=== PATIENT | male | born 1950 | race Caucasian/White ===

== ENCOUNTER → 2017-06-22 09:28 | Outpatient (CLI) | payer MEDICARE, OTHER, SELFPAY ==
[2017-06-22 11:15] LABS: AST(SGOT) 15 U/L (15-37); Alanine Aminotransfer ALT/SGPT 25 U/L (16-61); Albumin, Serum 3.9 g/dL (3.2-5.0); Alkaline Phosphatase 70 U/L (45-117); Cholesterol 128 mg/dL (200); Globulin 3.5 g/dL (2.2-4.2); High Density Lipoprotein 47 mg/dL; Protein, Total 7.4 g/dL (6.4-8.2); Triglycerides 124 mg/dL; Very Low Density Lipoprotein 25 mg/dL (5-40)
== END ==
PROVIDERS: Family Provider Family Medicine; PCP Family Medicine; Visit Provider Internal Medicine Cardiovascular Disease
DX: E78.5 Hyperlipidemia, unspecified (principal); Z79.899 Other long term (current) drug therapy
CPT/HCPCS: 80061; 80076

== ENCOUNTER → 2017-09-11 10:57 | Outpatient (CLI) | payer MEDICARE, OTHER, SELFPAY ==
[2017-09-11 13:24] LABS: Hemoglobin A1c 8.1 % (4.2-6.3)
== END ==
PROVIDERS: Family Provider Family Medicine; PCP Family Medicine; Visit Provider Family Medicine
DX: E11.51 Type 2 diabetes mellitus with diabetic peripheral angiopathy without gangrene (principal)
CPT/HCPCS: 36415; 83036

== ENCOUNTER → 2017-12-03 10:29 | Outpatient (CLI) | payer MEDICARE, OTHER, SELFPAY ==
[2017-12-03 11:42] LABS: Hemoglobin A1c 7.8 % (4.2-6.3)
[2017-12-03 11:53] LABS: ALB/GLOB Ratio 1.1 RATIO (0.9-2.4); AST(SGOT) 17 U/L (15-37); Alanine Aminotransfer ALT/SGPT 31 U/L (16-61); Albumin, Serum 3.8 g/dL (3.2-5.0); Alkaline Phosphatase 65 U/L (45-117); Anion Gap 9 (5-15); BUN 20 mg/dL (7-18); Chloride 106 mmol/L (98-107); Cholesterol 142 mg/dL (200); EST Glomerular Filtration Rate 79 mL/min (>60); Est Glom Filt Rate - Afr Amer 95 mL/min (>60); Globulin 3.5 g/dL (2.2-4.2); Glucose 128 mg/dL (74-106); High Density Lipoprotein 48 mg/dL; Potassium 4.2 mmol/L (3.5-5.1); Protein, Total 7.3 g/dL (6.4-8.2); Sodium Level 142 mmol/L (136-145); Triglycerides 137 mg/dL; Very Low Density Lipoprotein 27 mg/dL (5-40)
== END ==
PROVIDERS: Family Provider Family Medicine; PCP Family Medicine; Visit Provider Family Medicine
DX: E78.5 Hyperlipidemia, unspecified (principal); E11.51 Type 2 diabetes mellitus with diabetic peripheral angiopathy without gangrene
CPT/HCPCS: 36415; 80053; 80061; 83036

== ENCOUNTER → 2018-02-28 10:50 | Outpatient (CLI) | payer MEDICARE, OTHER, SELFPAY ==
[2018-02-28 12:31] LABS: Hemoglobin A1c 7.6 % (4.2-6.3)
== END ==
PROVIDERS: Family Provider Family Medicine; PCP Family Medicine; Referring Provider Family Medicine; Visit Provider Family Medicine
DX: E11.51 Type 2 diabetes mellitus with diabetic peripheral angiopathy without gangrene (principal)
CPT/HCPCS: 36415; 83036

== ENCOUNTER → 2018-05-29 06:50 | Outpatient (CLI) | payer MEDICARE, OTHER, SELFPAY ==
[2018-05-02 10:18] VITALS: BMI 28.5
--- NOTE | 2018-05-29 06:52 | ECHOD_ITS ---
Reason For Study: CAD Procedure This was a 2D Doppler, Color Flow transthoracic echocardiogram. Exam performed in department. Left Ventricle Normal LV size. Left ventricular systolic function is normal. The estimated ejection fraction is 55 %. Stage 1 diastolic dysfunction. No regional wall motion abnormalities noted. Right Ventricle Normal RV size. Normal systolic function. Atria Normal left atrium. Normal right atrium. Hypermobile atrial septum. Bubble contrast study negative for right to left interatrial shunt. Mitral Valve Normal mitral valve. Tricuspid Valve Normal tricuspid valve. Mild tricuspid valve insufficiency. Pulmonary artery systolic pressure is 26 mmHg. Aortic Valve Normal aortic valve. Trisinus/trileaflet aortic valve. Pulmonic Valve Normal pulmonic valve. Great Vessels Normal aortic root. The pulmonary artery is normal size. Normal inferior vena cava. Pericardium/Pleural No pericardial effusion. Medication Performed a rapid injection of agitated mix of 9 cc saline and 1cc air to assess for atrial septal defect. MMode/2D Measurements & Calculations LVIDd: 4.2 cm IVSd: 0.96 cm Ao root diam: 3.0 cm LVIDs: 2.5 cm LVPWd: 0.93 cm RVDd: 3.7 cm FS: 40.9 % LAV(MOD-bp): 43.5 ml LA A4 area: 16.0 cm2 LA dimension(2D): 3.5 cm LAV(MOD-bp) Indexed: 21.1 ml/m2 LAV(MOD-sp2): 49.9 ml LAV(MOD-sp4): 36.8 ml RA A4 area: 12.0 cm2 Doppler Measurements & Calculations MV E max justin: 49.5 cm/sec Lat Peak E' Justin: 12.7 cm/sec Med Peak E' Jutsin: 7.1 cm/sec MV A max justin: 57.1 cm/sec E/E' lat: 3.9 E/E' med: 7.0 MV E/A: 0.87 Ao V2 max: 118.5 cm/sec LV V1 max: 94.3 cm/sec PA V2 max: 141.4 cm/sec Ao max P.6 mmHg LV V1 max P.6 mmHg TR max justin: 237.6 cm/sec TR max P.8 mmHg Interpretation Summary Hypermobile atrial septum. Normal LV size. Left ventricular systolic function is normal. The estimated ejection fraction is 55 %. Stage 1 diastolic dysfunction. Bubble contrast study negative for right to left interatrial shunt. Mild tricuspid valve insufficiency. Ordering Physician: Ebenezer Balderas Referring Physician: Jamarcus Levi Performed By: Christie Nevarez RDCS
--- NOTE | 2018-05-29 13:47 | STRESSREP ---
Stress Test Report Exercise myocardial perfusion stress test. 67-year-old man with a history of coronary artery disease. Medications: Aspirin, lisinopril, metoprolol, atorvastatin, metformin. Resting EKG demonstrates sinus rhythm with a rate of 62 bpm normal intervals are noted resting blood pressure 118/78 mmHg. The patient exercised according to regular Christian protocol for a total duration of 7 minutes and 30 seconds the maximum heart rate attained was 150 bpm which was 99% of maximum predicted heart rate the maximum workload was 9.3 metabolic equivalents. At rest there were no ST or T wave changes noted suggest ischemia peak exercise upsloping ST changes were noted with normally the criteria for ischemia. The resting blood pressure 118/78 with a peak blood pressure 158/76. No clinical angina was noted. Myocardial perfusion protocol. 14.7 mCi of technetium 99m sestamibi was injected at rest. Patient exercised according to regular Christian protocol. At peak exercise 44.8 mCi of technetium 99m sestamibi was injected stress images were obtained stress and rest images were reconstructed and compared in the short axis vertical and horizontal long axis. Gated images were also obtained Perfusion SPECT analysis: Review of the stress images demonstrate normal uptake of tracer noted in all areas of myocardium. The resting images similarly demonstrate normal uptake of tracer noted in all areas of myocardium. No areas of reversibility are noted suggest ischemia no previous infarct is noted. Next Gated SPECT analysis: The gated ejection fraction is noted to be 73%. Conclusion: Normal exercise myocardial perfusion stress test at a high workload. Preserved ejection fraction.
== END ==
PROVIDERS: Family Provider Family Medicine; PCP Family Medicine; Referring Provider Internal Medicine Cardiovascular Disease; Visit Provider Internal Medicine Cardiovascular Disease
DX: I25.10 Atherosclerotic heart disease of native coronary artery without angina pectoris (principal); Z95.1 Presence of aortocoronary bypass graft
CPT/HCPCS: 78452; 93017; 93306; A9500; A4216

== ENCOUNTER → 2018-08-21 11:46 | Outpatient (CLI) | payer MEDICARE, OTHER, SELFPAY ==
[2018-08-21 11:07] VITALS: BMI 28.5
[2018-08-21 13:33] LABS: Hemoglobin A1c 7.6 % (4.2-6.3)
== END ==
PROVIDERS: Family Provider Family Medicine; PCP Family Medicine; Visit Provider Family Medicine
DX: E11.51 Type 2 diabetes mellitus with diabetic peripheral angiopathy without gangrene (principal)
CPT/HCPCS: 36415; 83036

== ENCOUNTER → 2018-11-19 11:49 | Outpatient (CLI) | payer MEDICARE, OTHER, SELFPAY ==
[2018-11-19 11:25] VITALS: BMI 28.5
[2018-11-19 12:39] LABS: ALB/GLOB Ratio 1.1 RATIO (0.9-2.4); AST(SGOT) 12 U/L (15-37); Alanine Aminotransfer ALT/SGPT 20 U/L (16-61); Albumin, Serum 3.8 g/dL (3.2-5.0); Alkaline Phosphatase 71 U/L (45-117); Anion Gap 4 (5-15); BUN 18 mg/dL (7-18); BUN/Creat Ratio 20.7 RATIO (10-20); Calcium,Total 8.9 mg/dL (8.5-10.1); Chloride 107 mmol/L (98-107); Cholesterol 127 mg/dL (200); Creatinine, Serum 0.87 mg/dL (0.70-1.30); EST Glomerular Filtration Rate 92 mL/min (>60); Est Glom Filt Rate - Afr Amer 111 mL/min (>60); Globulin 3.4 g/dL (2.2-4.2); Glucose 130 mg/dL (74-106); High Density Lipoprotein 51 mg/dL; Potassium 4.1 mmol/L (3.5-5.1); Protein, Total 7.2 g/dL (6.4-8.2); Sodium Level 139 mmol/L (136-145); Triglycerides 93 mg/dL; Very Low Density Lipoprotein 19 mg/dL (5-40)
== END ==
PROVIDERS: Family Provider Family Medicine; PCP Family Medicine; Visit Provider Family Medicine
DX: I10 Essential (primary) hypertension (principal); E78.00 Pure hypercholesterolemia, unspecified
CPT/HCPCS: 36415; 80053; 80061

== ENCOUNTER → 2020-01-06 10:07 | Outpatient (CLI) | payer MEDICARE, OTHER, SELFPAY ==
[2020-01-06 09:36] VITALS: BMI 28.5
[2020-01-06 12:50] LABS: ALB/GLOB Ratio 1.1 RATIO (0.9-2.4); AST(SGOT) 20 U/L (15-37); Alanine Aminotransfer ALT/SGPT 32 U/L (16-61); Alkaline Phosphatase 72 U/L (45-117); Anion Gap 4 (5-15); BUN 20 mg/dL (7-18); BUN/Creat Ratio 20.9 RATIO (10-20); Chloride 105 mmol/L (98-107); Cholesterol 116 mg/dL (200); Creatinine, Serum 0.96 mg/dL (0.70-1.30); EST Glomerular Filtration Rate 83 mL/min (>60); Est Glom Filt Rate - Afr Amer 100 mL/min (>60); Globulin 3.5 g/dL (2.2-4.2); Glucose 216 mg/dL (74-106); High Density Lipoprotein 42 mg/dL; Potassium 4.1 mmol/L (3.5-5.1); Protein, Total 7.5 g/dL (6.4-8.2); Sodium Level 137 mmol/L (136-145); Triglycerides 179 mg/dL; Very Low Density Lipoprotein 36 mg/dL (5-40)
== END ==
PROVIDERS: PCP Family Medicine; Referring Provider Family Medicine; Visit Provider Family Medicine
DX: E11.9 Type 2 diabetes mellitus without complications (principal)
CPT/HCPCS: 36415; 80053; 80061

== ENCOUNTER → 2021-04-26 10:40 | Outpatient (CLI) | payer MEDICARE, OTHER, SELFPAY ==
[2021-04-26 12:40] LABS: AST(SGOT) 9 U/L (15-37); Alanine Aminotransfer ALT/SGPT 22 U/L (16-61); Albumin, Serum 3.6 g/dL (3.2-5.0); Alkaline Phosphatase 71 U/L (45-117); Cholesterol 105 mg/dL (200); Globulin 3.5 g/dL (2.2-4.2); High Density Lipoprotein 47 mg/dL; Protein, Total 7.1 g/dL (6.4-8.2); Triglycerides 68 mg/dL; Very Low Density Lipoprotein 14 mg/dL (5-40)
== END ==
PROVIDERS: PCP Family Medicine; Visit Provider Internal Medicine Cardiovascular Disease
DX: E78.00 Pure hypercholesterolemia, unspecified (principal)
CPT/HCPCS: 36415; 80061; 80076

== ENCOUNTER → 2021-12-09 | Outpatient (CLI) | payer MEDICARE, OTHER, SELFPAY ==
--- NOTE | 2021-12-09 15:25 | RAD_ITS ---
EXAM: XR LEFT SHOULDER COMPLETE, 2 OR MORE VIEWS CLINICAL INDICATION: left shoulder pain and limited ROM TECHNIQUE: Two or more views of the left shoulder. This report was created using [employer] report generation technology. COMPARISON: None. FINDINGS: BONES/JOINTS: The bones are demineralized. No left shoulder fracture significant glenohumeral or AC joint narrowing or widening. Small inferior projecting osteophyte from the tip of the acromion at the AC joint seen on one view. No evidence of joint effusion or soft tissue swelling. No sclerotic or destructive changes observed. SOFT TISSUES: See above. OTHER FINDINGS: 4 views. RAD/Shoulder min 2 Views IMPRESSION: Minimal degenerative changes. No fracture. Demineralization. Electronically Signed: Hina Galicia MD at 3:43 EDT ,
--- NOTE | 2021-12-09 15:30 | RAD_ITS ---
EXAM: XR CERVICAL SPINE, 4 OR 5 VIEWS CLINICAL INDICATION: neck pain left side TECHNIQUE: Frontal, lateral and bilateral oblique views of the cervical spine. This report was created using [employer] report generation technology. COMPARISON: None. FINDINGS: VERTEBRAE: 5 total images including AP, lateral and oblique, and open-mouth odontoid. OTHER BONES/JOINTS: Median sternotomy wires are partially included. DISC SPACES: Moderate disc space narrowing at C4-5 and marked narrowing at C5-6. Mild spondylosis at C4-C6. Straightening of the usual lordotic curvature. SOFT TISSUES: Unremarkable. No prevertebral soft tissue widening. VASCULATURE: Moderate cervical carotid calcifications. LUNG APICES: Unremarkable medial lung apices. RAD/Cerv Spine 4 or 5 Views IMPRESSION: Moderate degenerative changes. No acute abnormality. Electronically Signed: Hina Galicia MD at 3:20 EDT ,
== END | disposition home or self-care (01) ==
LOC: RAD 15:24
PROVIDERS: PCP Family Medicine; Referring Provider Physician Assistant; Visit Provider Physician Assistant
DX: M25.519 Pain in unspecified shoulder (principal); M25.619 Stiffness of unspecified shoulder, not elsewhere classified; M54.2 Cervicalgia
CPT/HCPCS: 72050; 73030

== ENCOUNTER → 2022-04-19 | Outpatient (CLI) | payer MEDICARE, OTHER, SELFPAY | END | disposition home or self-care (01) | LOC: LABSPEC 15:36 | PROVIDERS: PCP Family Medicine; Referring Provider Physician Assistant; Visit Provider Physician Assistant | DX: U07.1 COVID-19 (principal); R05.9 Cough, unspecified | CPT/HCPCS: 87635; U0003; U0005 ==

== ENCOUNTER → 2022-05-11 | Outpatient (CLI) | payer MEDICARE, OTHER, SELFPAY ==
[2022-05-11 12:38] LABS: ALB/GLOB Ratio 1.3 RATIO (0.9-2.4); AST(SGOT) 12 U/L (15-37); Alanine Aminotransfer ALT/SGPT 23 U/L (16-61); Albumin, Serum 3.5 g/dL (3.2-5.0); Alkaline Phosphatase 61 U/L (45-117); Anion Gap 4 (5-15); BUN 13 mg/dL (7-18); BUN/Creat Ratio 14.6 RATIO (10-20); Chloride 108 mmol/L (98-107); Cholesterol 120 mg/dL (200); Creatinine, Serum 0.89 mg/dL (0.70-1.30); EST Glomerular Filtration Rate 89 mL/min (>60); Est Glom Filt Rate - Afr Amer 107 mL/min (>60); Globulin 2.7 g/dL (2.2-4.2); Glucose 148 mg/dL (74-106); High Density Lipoprotein 45 mg/dL; Potassium 4.1 mmol/L (3.5-5.1); Protein, Total 6.2 g/dL (6.4-8.2); Sodium Level 141 mmol/L (136-145); Triglycerides 112 mg/dL; Very Low Density Lipoprotein 22 mg/dL (5-40)
[2022-05-11 12:44] LABS: Microalbumin,Random Urine < 5.0 mg/L (NO RANGE EST.)
== END | disposition home or self-care (01) ==
LOC: BIMLAB 10:09
PROVIDERS: PCP Family Medicine; Referring Provider Family Medicine; Visit Provider Family Medicine
DX: E11.9 Type 2 diabetes mellitus without complications (principal); E78.00 Pure hypercholesterolemia, unspecified; I10 Essential (primary) hypertension
CPT/HCPCS: 36415; 80053; 80061; 82043; 82570

== ENCOUNTER → 2023-03-07 | Outpatient (CLI) | payer MEDICARE, OTHER, SELFPAY ==
--- NOTE | 2023-03-07 10:18 | RAD_ITS ---
STUDY: X-RAY - RIGHT KNEE REASON FOR EXAM: Male, 72 years old. Knee pain. TECHNIQUE: 4 views of the right knee. COMPARISON: None. FINDINGS: Normal visualized distal femur. Normal visualized proximal tibia and fibula. Normal proximal tibiofibular articulation. There is no demonstrated fracture. Normal medial femorotibial compartment. Normal lateral femorotibial compartment. Normal patellofemoral articulation. There is a moderate to large volume joint effusion. There are atherosclerotic calcifications. RAD/Knee 4 or More Views IMPRESSION: Moderate to large joint effusion. No demonstrated fracture. Electronically Signed: Pan Kyle MD at 11:23 EDT ,
== END | disposition home or self-care (01) ==
LOC: RAD 10:06
PROVIDERS: PCP Family Medicine; Referring Provider Family Medicine; Visit Provider Family Medicine
DX: M70.41 Prepatellar bursitis, right knee (principal)
CPT/HCPCS: 73564

== ENCOUNTER → 2023-06-07 | Outpatient (CLI) | payer MEDICARE, OTHER, SELFPAY ==
--- NOTE | 2023-06-07 06:38 | ECHOD_ITS ---
Version 2 Reason For Study: CAD/ASHD Procedure This was a 2D Doppler, Color Flow transthoracic echocardiogram. Exam performed in department. Left Ventricle Normal LV size. Left ventricular systolic function is normal. The estimated ejection fraction is 60 %. Stage 1 diastolic dysfunction. No regional wall motion abnormalities noted. Right Ventricle Normal RV size. Normal systolic function. Atria Normal left atrium. Normal right atrium. Mitral Valve Normal mitral valve. Tricuspid Valve Normal tricuspid valve. Mild tricuspid valve insufficiency. Pulmonary artery systolic pressure is 30 mmHg. Aortic Valve Normal aortic valve. Pulmonic Valve Normal pulmonic valve. Great Vessels Normal aortic root. The pulmonary artery is normal size. Normal inferior vena cava. Pericardium/Pleural No pericardial effusion. MMode/2D Measurements & Calculations LVIDd: 3.9 cm IVSd: 1.0 cm Ao root diam: 3.2 cm LVIDs: 2.7 cm LVPWd: 1.0 cm RVDd: 3.9 cm FS: 31.0 % LAV(MOD-bp): 38.5 ml LVAd ap4: 31.3 cm2 SV(MOD-sp4): 61.7 ml LAV(MOD-bp) Indexed: 19.0 ml/m2 LVLd ap4: 8.1 cm LAV(MOD-sp2): 37.7 ml EDV(MOD-sp4): 99.4 ml LAV(MOD-sp4): 38.0 ml EDV(sp4-el): 102.7 ml LVAs ap4: 16.9 cm2 LVLs ap4: 6.4 cm ESV(MOD-sp4): 37.7 ml ESV(sp4-el): 38.1 ml EF(MOD-sp4): 62.1 % EF(sp4-el): 62.9 % SV(sp4-el): 64.6 ml LA A4 area: 16.1 cm2 LA dimension(2D): 3.2 cm RA A4 area: 15.9 cm2 Time Measurements MV dec time: 0.24 sec Doppler Measurements & Calculations MV E max justin: 58.3 cm/sec Lat Peak E' Justin: 13.2 cm/sec Med Peak E' Justin: 9.9 cm/sec MV A max justin: 67.5 cm/sec E/E' lat: 4.4 E/E' med: 5.9 MV E/A: 0.86 Ao V2 max: 130.6 cm/sec LV V1 max: 119.4 cm/sec PA V2 max: 133.5 cm/sec Ao max P.8 mmHg LV V1 max P.7 mmHg TR max justin: 262.5 cm/sec TR max P.6 mmHg ECHO/Echo Complete Interpretation Summary Normal LV size. Left ventricular systolic function is normal. The estimated ejection fraction is 60 %. Stage 1 diastolic dysfunction. Pulmonary artery systolic pressure is 30 mmHg. Structurally normal valves. Ordering Physician: Ebenezer Balderas Referring Physician: ROBBIE BRAVO Performed By: Patricia No RDCS
--- OUTSIDE RECORDS SUMMARY | 2023-06-07 06:40 | XMS RPT_ITS | CCD ---
Author Name Unknown Address [address] [place] [address] Organization [facility] Care Team Providers Care Assistant Casino Shift Manager Name Role Phone Eric Galavizraissa Pierson Unavailable Guillaume Elsie Y Unavailable Dorothea VERNON, Leig hAnn Carter Unavailable Unavailable Liliana Rivas Unavailable Unavailable MD Sherrie, Ebenezer Marquez Unavailable Medications Completed/Discontinued Medications Medication Drug Class(es) Dates Sig (Normalized) Sig (Original) aspirin 325 mg oral tablet (17 sources) Nonsteroidal Anti-inflammatory Drug Start: 09-08-2010 take 1 tablet by mouth once daily ASPIRIN 325 MG TABS One tablet by mouth daily ASPIRIN [id number] Taylor Levine Problems Active Problems Problem Classification Problem Date Documented Da te Episodic/Chronic Coronary atherosclerosis and other heart disease (15 sources) Coronary arteriosclerosis; Translations: [Atherosclerotic heart disease of [place] coronary artery without angina pectoris] Onset: 09-08-2010 Resolved: 01-22-2015 01-22-2015 Chronic Diabetes mellitus with complications (5 sources) 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; Translations: [Type 2 diabetes mellitus with diabetic peripheral angiopathy without gangrene] Onset: 09-08-2010 09-08-2010 Chronic Disorders of lipid metabolism (5 sources) Hyperlipidemia; Translations: [Hyperlipidemia, unspecified] Onset: 09-08-2010 09-08-2010 Chronic Essential hypertension (5 sources) Hypertensive disorder; Translations: [Essential (primary) hypertension] Onset: 09-08-2010 09-08-2010 Chronic Past or Other Problems Problem Classification Problem Date Documented Date Episodic/Chronic Coronary atherosclerosis and other heart disease (5 sources) Presence of aortocoronary bypass graft; Translations: [Presence of aortocoronary bypass graft] Onset: 1 12-02-2010 Episodic Other aftercare (5 sources) Other senior care (current) drug therapy; Translations: [Other long term care phlebotomist (current) drug therapy] Onset: 1 09-08-2010 Episodic Other circulatory disease (5 sources) Electrocardiogram abnormal; Translations: [Abnormal electrocardiogram [ECG] [EKG]] Onset: 1 09-08-2010 Episodic Other nutritional; endocrine; and metabolic disorders (5 sources) Body mass index (BMI) 27.0-27.9, adult; Translations: [Body mass index (BMI) 27.0-27.9, adult] Onset: 5 07-23-2014 Episodic Results Test Name Value Interpretation Reference Range Facil ity Vital Signs Date Time Vital Sign Value Performing Clinician Heaven nichols 01-30-2017 09:14-0400 BMI (Body Mass Index) 27.26 kg/m2 Elsie Guillaume Khour[facility] [employer] Work Phone: 01-30-2017 09:14-0400 BP Diastolic 54 mm[Hg] Elsie Khoury [employer] [facility] Work Phone: 01-30-2017 09:14-0400 BP Systolic 90 mm[Hg] Elsie Khoury [facility] Work Phone: 01-30-2017 09:14-0400 Height 177.8 cm Elsie Khoury [employer] Work Phone: 01-30-2017 09:14-0400 Pulse (Heart Rate) 64 /min Elsie Khoury [employer] [facility] Work Phone: 01-30-2017 09:14-0400 Respiratory Rate 20 /min Elsie Khoury [employer] Work Phone: 01-30-2017 09:14-0400 Weight 86.18 kg Elsie Khoury [employer] Work Phone: 08-01-2016 09:53-0400 BMI (Body Mass Index) 27.55 kg/m2 MD Peng [facility] [employer] Work Phone: 08-01-2016 09:53-0400 BP Diastolic 50 mm[Hg] Ebenezer Balderas MD [facility] Work Phone: 08-01-2016 09:53-0400 BP Systolic 100 mm[Hg] MD [facility] Work Phone: 08-01-2016 09:53-0400 Height 177.8 cm MD [facility] Work Phone: 08-01-2016 09:53-0400 Pulse (Heart Rate) 64 /min MD [facility] Work Phone: 08-01-2016 09:53-0400 Respiratory Rate 20 /min MD [facility] Work Phone: 08-01-2016 09:53-0400 Weight 87.09 kg MD [facility] Work Phone: 08-03-2015 09:42-0400 BSA (Body Surface Area) 2.07 m2 MD [facility] Work Phone: Procedures Date Procedure Procedure Detail Performing Clinician Start: 06-26-2017 End: 06-26-2017 *Hepatic Function Panel Shailesh Meyer Start: 06-26-2017 End: 06-26-2017 Lipid panel [AGGREGATE] Shailesh Meyer Start: 01-30-2017 End: 01-30-2017 Follow Up Appt 6 months Shailesh Meyer Start: 01-30-2017 End: 01-30-2017 MMM Ebenezer Balderas MD Start: 12-28-2016 End: 01-10-2017 *Hepatic Function Panel Sahilesh Meyer Start: 12-28-2016 End: 01-10-2017 Lipid panel [AGGREGATE] Shailesh Meyer Start: 08-01-2016 End: 08-01-2016 Follow Up Appt 6 months Shailesh Meyer Start: 08-01-2016 End: 08-01-2016 MMShailesh Balderas MD Start: 06-22-2016 End: 06-28-2016 *Hepatic Function Panel Shailesh Meyer Start: 06-22-2016 End: 06-28-2016 Lipid panel [AGGREGATE] Shailesh Meyer Start: 12-21-2015 End: 12-21-2015 *Hepatic Function Panel Shailesh Meyer Start: 12-21-2015 End: 12-21-2015 Lipid panel [AGGREGATE] Shailesh Meyer Start: 08-03-2015 End: 08-03-2015 CANDY DEPOSITING MACHINE OPERATOR Ebenezer Balderas MD Start: 08-03-2015 End: 08-03-2015 Follow Up Appt 1 year Ebenezer Balderas MD Start: 06-24-2015 End: 07-12-2015 *Hepatic Function Panel Shailesh Meeyr Start: 06-24-2015 End: 07-12-2015 Lipid panel [AGGREGATE] Shailesh Meyer Start: 01-22-2015 End: 01-23-2015 Documentation of current medications Ebenezer Balderas MD Start: 01-22-2015 End: 01-22-2015 Follow Up Appt 6 months Shailesh Meyer Start: 01-22-2015 End: 01-22-2015 ELAINE Balderas MD Start: 01-22-2015 End: 01-22-2015 Pedal pulse taking Ebenezer Balderas MD Start: 12-22-2014 End: 12-22-2014 *Hepatic Function Panel Shailesh Meyer Start: 12-22-2014 End: 12-22-2014 Lipid panel [AGGREGATE] Shailesh Meyer Start: 07-23-2014 End: 07-23-2014 CANDY DEPOSITING MACHINE OPERATOR Jennifer Williamson PA-C Work Phone: Start: 07-23-2014 End: 07-24-2014 Documentation of current medications Jennifer Williamson PA-C Work Phone: Start: 07-23-2014 End: 07-23-2014 Follow Up Appt 6 months Jennifer garcia PA-C Work Phone: Start: 07-23-2014 End: 07-24-2014 Pedal pulse taking Jennifer Williamson PA-C Work Phone: Start: 05-21-2014 End: 07-02-2014 *Hepatic Function Panel Shailesh Meyer Start: 05-21-2014 End: 07-02-2014 Lipid panel [AGGREGATE] Shailesh Meyer Start: 01-20-2014 End: 07-07-2014 Follow Up Appt 6 months Shailesh Meyer Start: 01-20-2014 End: 07-07-2014 MMShailesh Balderas MD Start: 11-18-2013 End: 12-04-2013 *Hepatic Function Panel Shailesh Meyer Start: 11-18-2013 End: 12-04-2013 Lipid panel [AGGREGATE] Shailesh Meyer Start: 07-08-2013 End: 07-07-2014 CANDY DEPOSITING MACHINE OPERATOR Jennifer Williamson PA-C Work Phone: Start: 07-08-2013 End: 07-07-2014 Follow Up Appt 6 months Jennifer garcia PA-C Work Phone: Start: 06-21-2013 End: 07-02-2013 *Hepatic Function Panel Shailesh Meyer Start: 06-21-2013 End: 07-02-2013 Lipid panel [AGGREGATE] Shailesh Meyer Start: 01-07-2013 End: 01-07-2013 Follow Up Appt 6 months Shailesh Meyer Start: 01-07-2013 End: 01-07-2013 MMM Ebenezer Balderas MD Start: 01-07-2013 End: 01-14-2013 Nuclear stress test -exercise Ebenezer Balderas MD Start: 12-30-2012 End: 12-30-2012 *Hepatic Function Panel Viraj epstein MD Start: 12-30-2012 End: 12-30-2012 Lipid panel [AGGREGATE] Viraj epstein MD Start: 07-11-2012 End: 07-11-2012 Follow Up Appt 6 months Viraj epstein MD Start: 06-26-2012 End: 07-11-2012 *Hepatic Function Panel Viraj epstein MD Start: 06-26-2012 End: 07-11-2012 Lipid panel [AGGREGATE] Viraj epstein MD Start: 12-21-2011 End: 12-21-2011 Follow Up Appt 6 months Viraj epstein MD Start: 12-04-2011 End: 12-18-2011 *Hepatic Function Panel Viraj epstein MD Start: 12-04-2011 End: 12-18-2011 Lipid panel [AGGREGATE] Viraj epstein MD Start: 09-04-2011 End: 09-04-2011 *Hepatic Function Panel Viraj epstein MD Start: 09-04-2011 End: 09-04-2011 Lipid panel [AGGREGATE] Viraj epstein MD Start: 06-19-2011 End: 06-19-2011 Follow Up Appt 6 months Viraj epstein MD Plan of Treatment Date Care Activity Detail Author Start: 08-01-2017 End: 08-01-2017 Appointment Appointment [facility] Work Phone: Start: 07-13-2017 End: 06-26-2017 *Hepatic Function Panel *Hepatic Function Panel [facility] Work Phone: Start: 07-13-2017 End: 06-26-2017 Lipid panel [AGGREGATE] *Lipid Profile CC PCP [facility] Work Phone: Start: 01-30-2017 End: 01-30-2017 Appointment Appointment [facility] Work Phone: Start: 01-30-2017 End: 01-30-2017 Follow Up Appt 6 months Follow Up Appt 6 months [facility] Work Phone: Start: 01-30-2017 End: 01-30-2017 MMM MMM [facility] Work Phone: Start: 12-28-2016 End: 01-10-2017 *Hepatic Function Panel *Hepatic Function Panel [facility] Work Phone: Start: 12-28-2016 End: 01-10-2017 Lipid panel [AGGREGATE] *Lipid Profile CC PCP [facility] Work Phone: Start: 08-01-2016 End: 08-01-2016 Follow Up Appt 6 months Follow Up Appt 6 months [facility] Work Phone: Start: 08-01-2016 End: 08-01-2016 MMM MMM [facility] Work Phone: Start: 06-22-2016 End: 06-28-2016 *Hepatic Function Panel *Hepatic Function Panel [facility] Work Phone: Start: 06-22-2016 End: 06-28-2016 Lipid panel [AGGREGATE] *Lipid Profile CC PCP [facility] Work Phone: Start: 01-11-2016 End: 12-21-2015 *Hepatic Function Panel *Hepatic Function Panel [facility] Work Phone: Start: 01-11-2016 End: 12-21-2015 Lipid panel [AGGREGATE] *Lipid Profile CC PCP [facility] Work Phone: Start: 08-03-2015 End: 08-03-2015 CANDY DEPOSITING MACHINE OPERATOR CANDY DEPOSITING MACHINE OPERATOR [facility] Work Phone: Start: 08-03-2015 End: 08-03-2015 Follow Up Appt 1 year Follow Up Appt 1 year [facility] Work Phone: Start: 06-24-2015 End: 07-12-2015 *Hepatic Function Panel *Hepatic Function Panel [facility] Work Phone: Start: 06-24-2015 End: 07-12-2015 Lipid panel [AGGREGATE] *Lipid Profile CC PCP [facility] Work Phone: Start: 01-22-2015 End: 01-22-2015 Follow Up Appt 6 months Follow Up Appt 6 months [facility] Work Phone: Start: 01-22-2015 End: 01-22-2015 MMM MMM [facility] Work Phone: Start: 12-30-2014 End: 12-22-2014 *Hepatic Function Panel *Hepatic Function Panel [facility] Work Phone: Start: 12-30-2014 End: 12-22-2014 Lipid panel [AGGREGATE] *Lipid Profile CC PCP [facility] Work Phone: Start: 07-23-2014 End: 07-23-2014 CANDY DEPOSITING MACHINE OPERATOR CANDY DEPOSITING MACHINE OPERATOR [facility] Work Phone: Start: 07-23-2014 End: 07-23-2014 Follow Up Appt 6 months Follow Up Appt 6 months [facility] Work Phone: Start: 05-21-2014 End: 12-10-2013 *Hepatic Function Panel *Hepatic Function Panel [facility] Work Phone: Start: 05-21-2014 End: 12-10-2013 Lipid panel [AGGREGATE] *Lipid Profile CC PCP [facility] Work Phone: Start: 01-20-2014 End: 07-07-2014 Follow Up Appt 6 months Follow Up Appt 6 months [facility] Work Phone: Start: 01-20-2014 End: 07-07-2014 MMM MMM [facility] Work Phone: Start: 11-18-2013 End: 12-04-2013 *Hepatic Function Panel *Hepatic Function Panel [facility] Work Phone: Start: 11-18-2013 End: 12-04-2013 Lipid panel [AGGREGATE] *Lipid Profile CC PCP [facility] Work Phone: Start: 07-08-2013 End: 07-07-2014 CANDY DEPOSITING MACHINE OPERATOR CANDY DEPOSITING MACHINE OPERATOR [facility] Work Phone: Start: 07-08-2013 End: 07-07-2014 Follow Up Appt 6 months Follow Up Appt 6 months [facility] Work Phone: Start: 06-21-2013 End: 07-02-2013 *Hepatic Function Panel *Hepatic Function Panel [facility] Work Phone: Start: 06-21-2013 End: 07-02-2013 Lipid panel [AGGREGATE] *Lipid Profile CC PCP [facility] Work Phone: Start: 01-15-2013 End: 12-30-2012 *Hepatic Function Panel *Hepatic Function Panel [facility] Work Phone: Start: 01-15-2013 End: 12-30-2012 Lipid panel [AGGREGATE] *Lipid Profile [facility] Work Phone: Start: 01-07-2013 End: 01-07-2013 Follow Up Appt 6 months Follow Up Appt 6 months [facility] Work Phone: Start: 01-07-2013 End: 01-07-2013 MMM MMM [facility] Work Phone: Start: 01-07-2013 End: 01-07-2013 Nuclear stress test -exercise Nuclear stress test -exercise [facility] Work Phone: Start: 07-11-2012 End: 07-11-2012 Follow Up Appt 6 months Follow Up Appt 6 months [facility] Work Phone: Start: 06-26-2012 End: 07-11-2012 *Hepatic Function Panel *Hepatic Function Panel [facility] Work Phone: Start: 06-26-2012 End: 07-11-2012 Lipid panel [AGGREGATE] *Lipid Profile [facility] Work Phone: Start: 12-21-2011 End: 12-21-2011 Follow Up Appt 6 months Follow Up Appt 6 months [facility] Work Phone: Start: 12-04-2011 End: 12-18-2011 *Hepatic Function Panel *Hepatic Function Panel [facility] Work Phone: Start: 12-04-2011 End: 12-18-2011 Lipid panel [AGGREGATE] *Lipid Profile [facility] Work Phone: Start: 09-13-2011 End: 06-14-2011 *Hepatic Function Panel *Hepatic Function Panel [facility] Work Phone: Start: 09-13-2011 End: 06-14-2011 Lipid panel [AGGREGATE] *Lipid Profile [facility] Work Phone: Start: 06-19-2011 End: 06-19-2011 Follow Up Appt 6 months Follow Up Appt 6 months [facility] Work Phone: Patient Education [facility] Work Phone: Additional Source Comments FOR RECORDS PERTAINING TO PATIENTS WHO ARE OR HAVE BEEN ENROLLED IN A CHEMICAL DEPENDENCY/SUBSTANCEABUSE PROGRAM, SOME INFORMATION MAY BE OMITTED. This clinical summary was aggregated from multiple sources. Caution should be exercised in using it in the provision of clinical care. This summary normalizes information from multiple sources, and as a consequence, information in this document may materially change the coding, format and clinical context of patient data. In addition, data may be omitted in some cases. CLINICAL DECISIONS SHOULD BE BASED ON THE PRIMARY CLINICAL RECORDS. [facility] [employer], [facility]. provides no warranty or guarantee of the accuracy or completeness of information in this document.
== END | disposition home or self-care (01) ==
LOC: CVS 06:37
PROVIDERS: PCP Family Medicine; Referring Provider Internal Medicine Cardiovascular Disease; Visit Provider Internal Medicine Cardiovascular Disease
DX: I25.10 Atherosclerotic heart disease of native coronary artery without angina pectoris (principal); Z95.1 Presence of aortocoronary bypass graft
CPT/HCPCS: 78452; 93017; 93306; A9500; A4216

== ENCOUNTER 2023-07-17 10:23 | Day surgery (SDC) | payer MEDICARE, OTHER, SELFPAY ==
--- NOTE | 2023-06-25 08:34 | RAD_ITS ---
INDICATION: Abnormal Stress Test EXAMINATION/TECHNIQUE: X-RAY - XR Chest 2 Views COMPARISON: None. FINDINGS: LINES/DEVICES: None. LUNGS: No consolidation, edema or effusion. No pneumothorax. MEDIASTINUM AND CARDIOVASCULAR STRUCTURES: Cardiac silhouette within normal limits. CABG changes. BONES AND SOFT TISSUES: No acute findings. RAD/Chest PA and Lateral IMPRESSION: No radiographic evidence of acute cardiopulmonary disease. Electronically Signed: Deshawn Alves MD at 18:40 EST ,
[2023-06-25 08:47] LABS: Absolute Lymphocyte Count 1.89 X10^3/uL (0.83-4.51); Absolute Neutrophil Count 2.1 X10^3/uL (2.0-7.7); Basophil# 0.04 X10^3/uL; Basophil% 0.8 % (0-1); Eosinophil# 0.38 X10^3/uL; Eosinophils% 7.7 % (0-5); Hematocrit 38.7 % (40-54); Hemoglobin 12.5 g/dL (13.0-16.5); Lymphocyte # 1.89 X10^3/ul (0.83-4.51); Lymphocyte % 38.5 % (19-41); Mean Corp Hgb Conc 32.3 g/dL (32-36); Mean Corpuscular Hgb 28.9 pg (27.0-32.0); Mean Corpuscular Volume 89.6 fL (80-94); Mean Platelet Vol. 9.3 fl (6.2-12.0); Monocyte# 0.49 X10^3/uL; NRBC Flagged by Analyzer 0 % (0-5); Neutrophil # 2.09 X10^3/uL (2.7-7.7); Neutrophil % 42.6 % (47-70); Platelet Count 209 K/mm3 (150-450); RBC Distribution Width CV 12.8 % (11.6-14.6); RBC Distribution Width SD 42.2 fl (35.1-43.9); Red Blood Count 4.32 M/mm3 (4.6-6.2); White Blood Count 4.9 K/mm3 (4.4-11.0)
[2023-06-25 08:51] LABS: International Normalized Ratio 0.9; Prothrombin Time (Protime)PT. 12.5 SECONDS (11.7-14.9)
[2023-06-25 08:52] LABS: Partial Thromboplast Time 26.4 Seconds (24.1-36.2)
[2023-06-25 09:27] LABS: Anion Gap 4 (5-15); BUN 16 mg/dL (7-18); BUN/Creat Ratio 15.4 RATIO (10-20); Calcium,Total 10.3 mg/dL (8.5-10.1); Chloride 113 mmol/L (98-107); Creatinine, Serum 1.04 mg/dL (0.70-1.30); EST Glomerular Filtration Rate 74 mL/min (>60); Est Glom Filt Rate - Afr Amer 90 mL/min (>60); Glucose 134 mg/dL (74-106); Potassium 4.1 mmol/L (3.5-5.1); Sodium Level 143 mmol/L (136-145)
--- NOTE | 2023-07-11 15:51 | PCM.HP.BLA ---
History and Physical Date of Admission: 07/17/23 This is a pleasant 72-year-old man who presents for a cardiac catheterization following an abnormal stress test. He has a history of coronary artery bypass surgery with a left internal mammary artery to the left anterior descending artery, saphenous vein graft to the right coronary artery, circumflex artery in 2010. He also has a history of hypertension, hyperlipidemia, and diabetes mellitus. He denies chest, arm, jaw, or neck discomfort. His exercise tolerance is stable. He denies symptoms of CHF, palpitations, lightheadedness, dizziness, near syncope, or syncopal episodes. He denies claudication issues. He denies orthopnea, PND, cough, blood in urine, blood in stool, myalgia, or unexplainable fatigue. He states intermittent discomfort/weakness in the back of his leg bilaterally when mowing up a hill. He denies such symptoms with ADLs. His physical exam at this time is unremarkable his blood pressure is excellent and he has actually lost some weight since his last visit. Intake Vital Signs See EMR Allergies See EMR Medications See EMR [facility] Medical History Atherosclerotic heart disease of [place] coronary artery without angina pectoris Bicipital tendinitis of right shoulder DM (diabetes mellitus) type II, controlled, with peripheral vascular disorder Essential (primary) hypertension Hyperlipidemia Sebaceous cyst Surgical History H/O coronary artery bypass surgery (06/10/10) History of coronary artery stent placement (03/25/99) Family History Father Myocardial infarction Cancer leukemia CAD (coronary artery disease)Mother , from PE blood clots Social History Smoking Status: Never smoker how long ago did patient quit smokin alcohol intake: never substance use type: does not use caffeine: Yes Type: coffee Number of servings: 3 what type of physical activity do you participate in: none seatbelt use: always do you feel safe at home: Yes ROS Const Const: Negative for fatigue, weakness, headache(s), daytime sleepiness or difficulty sleeping Eyes Eyes: Negative for change in vision ENT ENT: Negative for headache(s), dizziness or Nosebleed/epistaxis Cardio Chest Pain: No Palpitations: No Edema: None Resp Respiratory: Negative for SOB with activity, SOB at rest, SOB orthopnea\SOB lying down or Cough GI GI: Negative nausea, vomiting or heartburn Neuro Neuro: Negative for dizziness, lightheadedness, near syncope, headache(s) or weakness Endo Endo: Negative for fatigue Cardiology Exam Const Appearance: cooperative, healthy appearing, no acute distress, well developed and well groomed Nutritional Appearance: average body habitus and well nourished Orientation: alert, awake and oriented x3 Head Head: normal to inspection, normocephalic and atraumatic Ears: hearing grossly normal bilaterally and external ears normal Nose: external nose normal, nares normal, nasal mucous membranes and turbinates normal, septum normal and no nasal discharge Face and Sinus: face symmetric Mouth: oral mucosae normal, tongue normal, oropharynx normal and moist mucous membranes Teeth and gingiva: dentition normal Throat: posterior oropharynx normal, tonsils normal and uvula midline Eyes General: appearance normal, both eyes and all related structures Eyelids: eyelids normal Conjunctivae: conjunctivae normal Pupils: PERRL, normal by confrontation and accommodation normal EOM: EOM intact bilaterally Neck Neck: normal visual inspection, trachea midline and no JVD JVD: +5 Carotids: normal carotid upstroke and bounding pulses Chest Chest inspection: normal inspection of the chest, symmetric chest movement and normal respiratory effort Auscultation: Bilateral: Clear to Auscultation Cardio Palpation: normal PMI Rate: regular rate Rhythm: regular rhythm Heart sounds: S1 normal, S2 normal and normal, physiologic split S2; Negative rub, gallop or murmur GI GI: normal to inspection, soft, no hepatosplenomegaly and bowel sounds present Neuro General: patient alert, patient awake, patient oriented x3, gait normal, moves all extremities and no focal sensory deficit Skin Skin: no rashes or lesions noted Extremities Pulses: Normal: Right Femoral Pulse, Left Femoral Pulse, Right Dorsalis Pedis Pulse, Left Dorsalis Pedis Pulse, Right Posterior Tibial Pulse, Left Posterior Tibial Pulse, Right Radial Pulse and Left Radial Pulse Lower Extremity Edema: None: Bilateral Musculoskel Musculoskeletal: No joint tenderness Psych Psychological: normal affect Supplemental Info Supplemental Information Echocardiogram 05/29/18 Interpretation Summary Hypermobile atrial septum. Normal LV size. Left ventricular systolic function is normal. The estimated ejection fraction is 55 %. Stage 1 diastolic dysfunction. Bubble contrast study negative for right to left interatrial shunt. Mild tricuspid valve insufficiency. Stress Test 05/29/18 Resting EKG demonstrates sinus rhythm with a rate of 62 bpm normal intervals are noted resting blood pressure 118/78 mmHg. The patient exercised according to regular Christian protocol for a total duration of 7 minutes and 30 seconds the maximum heart rate attained was 150 bpm which was 99% of maximum predicted heart rate the maximum workload was 9.3 metabolic equivalents. At rest there were no ST or T wave changes noted suggest ischemia peak exercise upsloping ST changes were noted with normally the criteria for ischemia. The resting blood pressure 118/78 with a peak blood pressure 158/76. No clinical angina was noted. Myocardial perfusion protocol. 14.7 mCi of technetium 99m sestamibi was injected at rest. Patient exercised according to regular Christian protocol. At peak exercise 44.8 mCi of technetium 99m sestamibi was injected stress images were obtained stress and rest images were reconstructed and compared in the short axis vertical and horizontal long axis. Gated images were also obtained Perfusion SPECT analysis: Review of the stress images demonstrate normal uptake of tracer noted in all areas of myocardium. The resting images similarly demonstrate normal uptake of tracer noted in all areas of myocardium. No areas of reversibility are noted suggest ischemia no previous infarct is noted. Next Gated SPECT analysis: The gated ejection fraction is noted to be 73%. Conclusion: Normal exercise myocardial perfusion stress test at a high workload. Preserved ejection fraction. Stress test 06/07/2023: Conclusion: Abnormal exercise myocardial perfusion stress test with evidence of EKG changes suggestive of ischemia. No clinical angina noted No perfusion images of ischemia Preserved ejection fraction Previous basal inferoSeptal infarct Assessment and Plan Assessment and Plan (1) H/O coronary artery bypass surgery: Status: Chronic Comment: CABG x 3 , COELLO to LAD, SVG to distal RCA at the bifurcation, SVG to OM1 06/10/2010 Plan: He is status post coronary artery bypass surgery 12 years ago. His stress test from 06/07/2023 was abnormal, with evidence of EKG changes suggestive of ischemia. Would like to proceed with a cardiac catheterization to further assess this. Depending on results, further recommendations will be made. (2) Abnormal Stress Test: Will proceed with a cardiac catheterization following his abnormal stress test. Depending on results, further recommendations will be made.
[2023-07-17 10:47] VITALS: BMI 26.9
--- NOTE | 2023-07-17 13:18 | CL.D_ITS ---
Patient Name: ENRIQUE MEIER Study Date: 07/17/2023 Performing: Ebenezer Balderas MD Ht: 69 inches 175.26 cm : 1950 Wt: lbs kg Age: 72 Gender: male BSA: PROCEDURE(S) PERFORMED [id number])LHC/COR/CABG CLINICAL PROFILE AND INDICATIONS Indications: Suspected CAD Heart Failure: None Stress/Imaging Date: 06/07/23Stress Test with SPECT MPI: Positive Intermediate Risk CAD Presentations: No Sxs, no angina. CONCLUSIONS Coronary disease status post coronary bypass surgery with patent COELLO to the LAD, saphenous vein graft to obtuse marginal branch, and saphenous vein graft to posterior descending artery and posterolateral branch. Preserved ejection fraction. RECOMMENDATIONS Medical therapy DESCRIPTION OF PROCEDURE The patient arrived to the procedure lab. The risks and benefits of the procedure as well as a full description of our services here and current unavailability of surgical backup were fully explained to the patient and/or their significant other prior to the catheterization. The Timeout was completed, verifying the correct patient and procedure. The patient's procedural site was prepped and draped in the usual fashion. Local anesthetic was given subcutaneously to left radial region with Lidocaine 2%. Using a modified Seldinger technique, arterial access was obtained via the left radial artery, a 6Fr sheath was inserted. Left internal mammary artery graft to the LAD selective angiography was performed in multiple views using a 5 Fr. IM catheter. Left Coronary Artery selective angiography was performed in multiple views using a 5 Fr. JL4 catheter. Right Coronary Artery selective angiography was then performed in multiple views using a 5 Fr. 3DRC (Glynn) catheter. Saphenous Vein graft to the RCA selective angiography was performed in multiple views using a 5 Fr. 3DRC (Glynn) catheter. Saphenous Vein graft to the OM 1 selective angiography was performed in multiple views using a 5 Fr. 3DRC (Glynn) catheter. Saphenous Vein graft to the OM 1 selective angiography was performed in multiple views using a 5 Fr. AR MOD catheter.The arterial sheath was pulled and a TR Band was applied for hemostasis. 8cc of air CORONARY ANGIOGRAPHY DOMINANCE: Right Dominant LEFT HEART ASSESSMENT Left Ventricular Ejection Fraction: by Echo 60 % Normal LV wall motion Normal Left Ventricular systolic function LEFT MAIN: Distal severe disease noted LEFT ANTERIOR DESCENDING ARTERY: Ostial high-grade stenosis and a first diagonal vessel with mild disease CIRCUMFLEX ARTERY: High-grade ostial circumflex artery stenosis present in the main circumflex artery with mild disease CIRCUMFLEX: Circumflex: High-grade ostial circumflex artery stenosis present in the main circumflex artery with mild disease RIGHT CORONARY ARTERY: Dominant vessel with ostial 90% stenosis, mid 90% and a posterolateral branch with a mid 90% stenosis. GRAFTS: COELLO graft to the Mid LAD is patent Saphenous Vein graft to the 1st OM is patent Saphenous Vein graft to the RPDA To the right posterior descending artery and posterolateral vessel is patent with minimal disease COMPLICATIONS No Complications PROCEDURE MEDICATIONS Fentanyl 50 mcg IV Versed 1 mg IV Oxygen: 2 L/min via nasal cannula Heparin given IA 07/17/2023 12:46:18 Verapamil 2.5mg, Ntg 100mcgs, 3000 units of Heparin given IA 07/17/2023 12:46:18 SUMMARY OF HEMODYNAMIC DATA Time AIR REST ECG 10:50:14 ECG 12:26:58 AO 127/67 (92) SA 12:48:51 13:17:46 Signed By Ebenezer Balderas MD On 07/17/2023 13:18:03 Ebenezer Balderas MD
== END 2023-07-17 14:40 | disposition home or self-care (01) ==
PROVIDERS: PCP Family Medicine; Referring Provider Internal Medicine Cardiovascular Disease; Visit Provider Internal Medicine Cardiovascular Disease
DX: R94.39 Abnormal result of other cardiovascular function study (principal); E11.9 Type 2 diabetes mellitus without complications; R07.9 Chest pain, unspecified; I25.10 Atherosclerotic heart disease of native coronary artery without angina pectoris; I10 Essential (primary) hypertension; R94.31 Abnormal electrocardiogram [ECG] [EKG]; E78.5 Hyperlipidemia, unspecified; Z95.1 Presence of aortocoronary bypass graft; Z95.5 Presence of coronary angioplasty implant and graft; Z82.49 Family history of ischemic heart disease and other diseases of the circulatory system; Z87.891 Personal history of nicotine dependence
CPT/HCPCS: 36415; 71046; 80048; 85025; 85610; 85730; 93455; 99152; 99153; C1894; J7040; Q9967; C1769

== ENCOUNTER → 2024-05-01 | Outpatient (CLI) | payer MEDICARE, OTHER, SELFPAY ==
[2024-05-01 11:36] LABS: AST(SGOT) 11 U/L (15-37); Alanine Aminotransfer ALT/SGPT 22 U/L (16-61); Albumin, Serum 3.7 g/dL (3.2-5.0); Alkaline Phosphatase 65 U/L (45-117); Bilirubin, Direct 0.24 mg/dL (0.00-0.30); Cholesterol 106 mg/dL (200); Globulin 3.2 g/dL (2.2-4.2); High Density Lipoprotein 45 mg/dL; Protein, Total 6.9 g/dL (6.4-8.2); Triglycerides 89 mg/dL; Very Low Density Lipoprotein 18 mg/dL (5-40)
== END | disposition home or self-care (01) ==
LOC: LAB 10:49
PROVIDERS: PCP Family Medicine; Referring Provider Physician Assistant Medical; Visit Provider Physician Assistant Medical
DX: E78.5 Hyperlipidemia, unspecified (principal)
CPT/HCPCS: 36415; 80061; 80076

== ENCOUNTER → 2024-07-01 | Outpatient (CLI) | payer MEDICARE, OTHER, SELFPAY ==
[2024-07-01 12:53] LABS: Anion Gap 6 (5-15); BUN 14 mg/dL (7-18); BUN/Creat Ratio 16.5 RATIO (10-20); Calcium,Total 9.3 mg/dL (8.5-10.1); Chloride 109 mmol/L (98-107); Creatinine, Serum 0.85 mg/dL (0.70-1.30); EST Glomerular Filtration Rate 94 mL/min (>60); Est Glom Filt Rate - Afr Amer 113 mL/min (>60); Glucose 152 mg/dL (74-106); Potassium 4.3 mmol/L (3.5-5.1); Sodium Level 141 mmol/L (136-145)
[2024-07-01 21:38] LABS: AST(SGOT) 17 U/L (15-37); Alanine Aminotransfer ALT/SGPT 29 U/L (16-61); Albumin, Serum 3.6 g/dL (3.2-5.0); Alkaline Phosphatase 63 U/L (45-117); Bilirubin, Direct 0.23 mg/dL (0.00-0.30); Cholesterol 103 mg/dL (200); Globulin 3.2 g/dL (2.2-4.2); High Density Lipoprotein 46 mg/dL; Protein, Total 6.8 g/dL (6.4-8.2); Triglycerides 97 mg/dL; Very Low Density Lipoprotein 19 mg/dL (5-40)
== END | disposition home or self-care (01) ==
LOC: BIMLAB 09:54
PROVIDERS: Physician Assistant Medical; PCP Family Medicine; Referring Provider Family Medicine; Visit Provider Family Medicine
DX: E78.00 Pure hypercholesterolemia, unspecified (principal); I10 Essential (primary) hypertension
CPT/HCPCS: 36415; 80048; 80061; 80076

== ENCOUNTER → 2025-01-05 | Outpatient (CLI) | payer MEDICARE, OTHER, SELFPAY ==
--- NOTE | 2025-01-05 14:29 | RAD_ITS ---
PROCEDURE: ANKLE 2 VIEWS 01/05/2025 REASON FOR EXAM: LEFT LEG PAIN TECHNIQUE: ANKLE 2 VIEWS Laterality: Left. COMPARISON: None. FINDINGS: Calcaneal spur formation. Enthesophyte formation at the calcaneal insertion of Achilles tendon. Mild osteopenia of the visualized bones. Degenerative joint disease. No fracture or dislocation is seen. No lytic or blastic bone lesion is noted. RAD/Ankle 2 Views IMPRESSION: No radiographic evidence of an acute bone abnormality. Reading Location[facility]
--- NOTE | 2025-01-05 14:29 | RAD_ITS ---
EXAM: LEFT TIBIA/FIBULA. CLINICAL HISTORY: Pain. COMPARISON: None. TECHNIQUE: Three views. FINDINGS: Metallic clips are noted in the soft tissues of the leg. Normal visualized tibia. Normal visualized fibula. Calcified atheromatous plaques are noted. RAD/Tibia & Fibula 2 Views IMPRESSION: Metallic clips are noted in the soft tissues of the leg. No radiographic evidence of an acute bone abnormality. Reading Location[facility]
== END | disposition home or self-care (01) ==
LOC: RAD 14:26
PROVIDERS: PCP Family Medicine; Referring Provider Nurse Practitioner Family; Visit Provider Nurse Practitioner Family
DX: M79.605 Pain in left leg (principal)
CPT/HCPCS: 73590; 73600

== ENCOUNTER → 2025-01-22 | Outpatient (CLI) | payer MEDICARE, OTHER, SELFPAY ==
--- NOTE | 2025-01-22 10:30 | RAD_ITS ---
PROCEDURE: ORBITS FOR FOREIGN BODY 01/22/2025 REASON FOR EXAM: HISTORY OF METAL TO EYES CLEARANCE FOR MRI TECHNIQUE: Procedure Code: [id number]. Modality: DX Procedure: ORBITS FOR FOREIGN BODY COMPARISON: None FINDINGS: No radiopaque foreign body seen. RAD/Orbits for Foreign Body IMPRESSION: No radiopaque foreign body. Reading Location: [id number]
--- NOTE | 2025-01-22 10:50 | MRI_ITS ---
PROCEDURE: LOWER EXT JOINT ONLY (ROUTINE) 01/22/2025 REASON FOR EXAM: ANKLE PAIN TECHNIQUE: Procedure Code: MRILEJ Modality: MR Procedure: LOWER EXT JOINT ONLY (ROUTINE) Multiplanar and multisequence images were obtained without IV contrast administration. COMPARISON: COMPARISON : None FINDINGS: Osseous: Distal tibiofibular congruency is maintained. The ankle mortise is intact. No osteochondral defect is seen at the talar dome. Subtalar alignment is anatomic. Calcaneal height is preserved. Moderate-sized plantar calcaneal heel spur. No evidence of a tarsal coalition. Small tibiotalar joint effusion. Moderately large subtalar effusion. Small talonavicular and calcaneocuboid effusions. Mild midfoot effusions. Bone marrow: Mild subchondral cystic changes noted along the posterior distal tibia. No evidence of red marrow reconversion. No focal suspicious bone lesion is seen. No bone marrow edema to suggest an acute osseous injury. Articular cartilage: Tibiotalar cartilage is preserved. No full-thickness tibiotalar cartilage loss is seen. Subtalar cartilage appears preserved. No full-thickness subtalar cartilage loss is seen. Muscle: Visualized muscle quality at the hindfoot is preserved. There is no asymmetric muscle atrophy. No muscle edema to suggest an acute sprain. Kager's fat pad: Mild edema seen within Kager's fat pad. Bursa: Trace amount of fluid seen within the retrocalcaneal bursa. Tendons: The distal Achilles tendon is intact.No significant Achilles degeneration. The plantaris tendon is intact. Anterior dorsiflexor tendons are unremarkable. Posteromedial plantar flexor tendons are intact. Os tibialis externum incidentally noted at the posterior tibial tendon attachment. No tenosynovitis. Peroneal tendons are intact. No significant tenosynovitis. Retinacula: No retinacula thickening or edema is seen to suggest an acute injury. Ligaments: Distal anterior and posterior tibiofibular ligaments are intact. Anterior and posterior talofibular ligaments are intact. The calcaneofibular ligament is intact. Tibiotalar and tibiocalcaneal segments of the deltoid ligament are intact. Mild edema is seen along the plantar calcaneonavicular ligament possibly due to mild sprain. The bifurcate ligament is intact. Lisfranc ligament appears intact. Plantar fascia: There is slight thickening of the proximal plantar fascia likely related to chronic fasciitis. No evidence of acute plantar fasciitis. No plantar fascial tear. No plantar fascial fibroma. MRI/Lower Ext Joint Only (Routine) IMPRESSION: [id number] joint effusions throughout the visualized foot of indetermina te significance. - Other findings discussed above in detail. Reading Location: [id number]
== END | disposition home or self-care (01) ==
LOC: OPMRI 10:06
PROVIDERS: PCP Family Medicine; Referring Provider Family Medicine; Visit Provider Family Medicine
DX: M79.605 Pain in left leg (principal)
CPT/HCPCS: 70030; 73721

== ENCOUNTER → 2025-02-25 | Outpatient (CLI) | payer MEDICARE, OTHER, SELFPAY ==
--- NOTE | 2025-02-25 12:15 | RAD_ITS ---
EXAM: XR Lumbosacral Spine, 2 or 3 Views CLINICAL INDICATION: BACK PAIN TECHNIQUE: Frontal and lateral views of the lumbar spine and sacrum. COMPARISON: No relevant prior studies available. FINDINGS: VERTEBRAE: Multilevel endplate degenerative changes of the visualized spine. No acute fracture. Normal alignment. SACRUM/COCCYX: Unremarkable as visualized. No acute fracture. DISC SPACES: Mild disc degeneration of L5-S1. SOFT TISSUES: Unremarkable. VASCULATURE: Scattered calcified atherosclerotic disease of aorta. RAD/Lumbar Spine 2 or 3 Views IMPRESSION: Degenerative changes as above. Reading Location: [id number]
== END | disposition home or self-care (01) ==
LOC: RAD 12:11
PROVIDERS: PCP Family Medicine; Referring Provider Physician Assistant; Visit Provider Physician Assistant
DX: M54.50 Low back pain, unspecified (principal)
CPT/HCPCS: 72100

== ENCOUNTER 2025-04-06 08:00 | Outpatient (RCR) | payer MEDICARE, OTHER, SELFPAY ==
--- NOTE | 2025-03-03 10:56 | HP.PTEVAL_ITS ---
Patient's Visit Information Visit Information Visit Information: ENRIQUE MEIER is a 74 year old M referred to Physical Therapy by ALISON Doran with a diagnosis of L IT band and L LBP. Date of Evaluation: 03/03/25 Physical Therapist: Raine Moreland MPT Visit Plan Frequency: 2x /Week Duration: 2 Months Plan: Sent pt home with press ups to see if helps with R lateral knee pain/ankle pain as pt said it lessened his pain slightly during the eval. Pt was told to stop the exercise if it made him worse. 2X/ week for 8 weeks for centralization of sx using extension principle, core stability, postural exercises with HEP Prone press ups and sitting with good posture with L roll. Subjective Subjective: He is having L hip pain all the way down to his ankle. It started about week of December. He is better as long as he is taking pain pills. He has a constant ache even at night if he does not take the pain pills. A lot of times he feels better walking on it then just sitting. He does not feel that his leg is weak. He reports that is started in his ankle and spread upwards. They did an MRI of his ankle and X-rays on his back and hip. 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 He was on steroids' for 5 days and it seemed to help and Sunday was the first day off of it. Pain L lateral knee pain: Pain Intensity (Out of 10): 6 L hip pain: Pain Intensity (Out of 10): 6 Objective Objective: Gait: Walks with decrease stance time on the R LE Trunk AROM: flexion 75%, SB B 75%, Ext 50% with increase L sided back pain LE MMT: R hip flex 13.2 and L 12.3 R knee ext 21.8 and L 23.4 R knee flex 11.1 and L 10.5 Pt is able to heel and to raise with no issue SLUMP test R negative and + SLUMP test on the L for slight pain and very little bend at the waist before the pain comes on. -SLR B Able to do 3/4 normal bridge Prone laying pt had some L leg pain down the side of his knee down to his ankle. Laying with pillow under abdomen in prone.... felt less in his ankle and more in his knee. Did prone with pillow under abdomen to JOSETTE 3 X 10 and his L leg sx felt better. Prone Press ups 2 X 10 (L lateral knee felt better.. pain still at lateral knee but better). Instructed pt in proper posture sitting in a chair with a L roll.. other than feeling weird he said his knee felt a little better in that position Balance/Special Test Scores Oswestry Low Back Score: 10 Goals Goal 1:: I HEP Goal Time Frame: 6-8 Weeks Goal 2:: Abolish L knee and ankle pain Goal Time Frame: 6-8 Weeks Goal 3:: Sit with better posture at home and in the car Goal Time Frame: 6-8 Weeks Goal 4:: Less pain with SLUMP position Goal Time Frame: 6-8 Weeks Rehabilitation Potential Rehabilitation Potential: Good Anticipated Interventions Patient/Client Instruction: Educate patient on: Condition and Plan of Care For the Purpose of:: To decrease pain, To increase ROM, To improve nutrient delivery to tissue, To improve muscle performance and motor function, To improve ability to perform ADL's, To increase tolerance to activity/condition/position, To improve performance and independence with ADL's, To improve health of tissue and To decrease soft tissue restriction Therapeutic Exercise to Include: Strength training, Body mechanics, Postural training, Flexibilty training, Neuromotor development, Active ROM, Dynamic Lumbar Stabilization, Rolando Exercises and Scapular Strength/Stabilization For the Purpose of:: To decrease pain, To increase ROM, To improve nutrient delivery to tissue, To improve muscle performance and motor function, To improve ability to perform ADL's, To increase tolerance to activity/condition/position, To improve performance and independence with ADL's, To improve ability of physical actions for home/community/work/leisure, To improve gait and locomotor functions, To improve health of tissue, To decrease soft tissue restriction, To increase flexibility/ROM and To improve endurance Manual Therapy Techniques to Include: Mobilization, Passive ROM and Soft tissue mobilization For the Purpose of:: To decrease pain, To increase ROM, To improve nutrient delivery to tissue, To increase oxygenation perfusion, To improve ability to perform ADL's, To increase tolerance to activity/condition/position, To improve performance and independence with ADL's, To decrease level of supervision to perform tasks, To improve ability of physical actions for home/community/work/leisure, To improve gait and locomotor functions, To improve health of tissue, To decrease soft tissue restriction and To increase flexibility/ROM Cryotherapy (ice pack, ice massage): Yes Thermo therapy (hot pack): Yes For the Purpose of:: To decrease pain, To decrease swelling/inflammation, To increase ROM and To increase oxygenation perfusion Text: Thank you for the opportunity to evaluate your patient. For Medicare and Medicare HMO plans, please review the plan of care and approve it. It will need to be FAXED BACK to us at [phone] for Medicare purposes. For Medicare only, by signing this I certify the plan of care. Please let me know if there are questions or concerns regarding this plan of care. Physician Signature: Date:
--- NOTE | 2025-04-06 08:23 | HP.PTDCSUM ---
Discharge Summary D/C summary: It has been my pleasure to treat ENRIQUE MEIER referred by ALISON Doran, with the diagnosis of L IT band and L LBP for a total of 10 visit(s). Discharge Date: 04/06/25 Please see the following information for a summary of their discharge status. Subjective Subjective: He is doing exercises at home. His knee and ankle does not hurt anymore. By the end of the day his hip is sore but it does not hurt during the day or during the night. He thinks that sitting in his recliner increases his hip pain. Pain L lateral knee pain: Pain Intensity (Out of 10): 0 L hip pain: Pain Intensity (Out of 10): 0 Overall Improvement % Improvement: 90 Objective Objective/Function: SLUMP test... alittle pain on the L but improved No pain on the L with piriformis stretching or supine IT band stretching. Pt to try a different chair at night and see if that chair and his posture in it is contributing to his night time hip pain Goals Goal 1:: I HEP Goal Progress: Goal Met Goal 2:: Abolish L knee and ankle pain Goal Progress: Goal Met Goal 3:: Sit with better posture at home and in the car Goal Progress: Progressing Goal 4:: Less pain with SLUMP position Goal Progress: Progressing Plan Plan: 2X/ week for 8 weeks for centralization of sx using extension principle, core stability, postural exercises with HEP Prone press ups and sitting with good posture with L roll. D/C Information Discharge Comments: DC PT to HEP d/c sentence: If there are questions or concerns regarding this patient's physical therapy, please feel free to call me at [phone]. Thank you for the referral of this patient. Sincerely, Raine Moreland, MPT Balance/Gait/Functional tests Balance/Special Test Scores Oswestry Low Back Score: 2 Improvement % Improvement: 90
== END 2025-04-06 19:00 | disposition home or self-care (01) ==
LOC: PT 08:00
PROVIDERS: PCP Family Medicine; Referring Provider Physician Assistant; Visit Provider Physician Assistant
DX: M76.32 Iliotibial band syndrome, left leg (principal); M54.50 Low back pain, unspecified
CPT/HCPCS: 97110; 97162; 97530